=== PATIENT | female | born 1955 | race Asian ===

== ENCOUNTER 2018-08-24 05:45 | Day surgery (SDC) | payer OTHER ==
[2018-08-24] MEDS ORDERED: CEFAZOLIN 2 GM/50 ML (PMX) 50 ML IVPB (06:00)
[2018-08-24] MEDS ORDERED: SEVOFLURANE 15 MIN (07:30)
[2018-08-24] MEDS ORDERED: NEOSTIGMINE 3 MG/3 ML SYRINGE (07:31)
[2018-08-24] MEDS ORDERED: PROPOFOL 20 ML (07:31)
[2018-08-24] MEDS ORDERED: GLYCOPYRROLATE 0.4 MG INJ (07:31)
[2018-08-24] MEDS ORDERED: LIDOCAINE 2% (SDV) 5 ML INJ (07:31)
[2018-08-24] MEDS ORDERED: ROCURONIUM 50 MG INJ (07:31)
[2018-08-24] MEDS ORDERED: SUCCINYLCHOLINE CHLORIDE 100 MG/5 ML SYG IV (07:31)
[2018-08-24] MEDS ORDERED: ROPIVACAINE 0.5 % 30 ML VIAL (07:35)
[2018-08-24] MEDS: POLYMYXIN/BACITRACIN 1L IRRIG (08:54)
[2018-08-24] MEDS ORDERED: MIDAZOLAM 1 MG/ML 2 ML INJ IV (09:00)
[2018-08-24] MEDS ORDERED: LABETALOL HCL 20MG INJ IV (09:00)
[2018-08-24] MEDS ORDERED: DIPHENHYDRAMINE 50 MG INJ IV (09:00)
[2018-08-24] MEDS ORDERED: EPHEDrine 25 MG/5 ML SYG IV (09:00)
[2018-08-24] MEDS ORDERED: hydrALAzine 20 MG INJ IV (09:00)
[2018-08-24] MEDS ORDERED: ONDANSETRON 4 MG INJ IV (09:00)
[2018-08-24] MEDS ORDERED: OXYCODONE/ACETAMINOPHEN (5/325) TAB PO ×2 (09:00)
[2018-08-24] MEDS ORDERED: HYDROmorphONE 1 MG/5 ML IV SYRINGE IV ×3 (09:00)
[2018-08-24] MEDS ORDERED: METOCLOPRAMIDE 10 MG INJ IV (09:00)
[2018-08-24] MEDS ORDERED: MEPERIDINE 25 MG INJ IV (09:00)
[2018-08-24] MEDS ORDERED: FENTAnyl 50 MCG/ML VIAL IV ×3 (09:00)
[2018-08-24] MEDS ORDERED: ONDANSETRON 4 MG INJ (09:20)
[2018-08-24] MEDS ORDERED: METOCLOPRAMIDE 10 MG INJ (09:28)
[2018-08-24] MEDS ORDERED: CEFAZOLIN 1 GM INJ (09:28)
== END 2018-08-24 11:40 | disposition home or self-care (01) ==
LOC: SDS 05:45
DX: M21.6X1 Other acquired deformities of right foot (principal); I10 Essential (primary) hypertension; E78.5 Hyperlipidemia, unspecified
CPT/HCPCS: 28118; 73630; 88304; 88311